=== PATIENT | male | born 1965 | race Caucasian/White ===

== ENCOUNTER → 2019-05-04 | Day surgery (SDC) | payer BC ==
[2019-05-03 12:43] LABS: BASOPHILS % 0.4 % (0.0-1.0); EOSINOPHILS % 0.4 % (0.0-6.0); HEMATOCRIT 45.6 % (38.2-49.6); LYMPHOCYTES # (AUTO) 2.2 (1.0-3.2); LYMPHOCYTES % 25.6 % (18.0-39.1); MEAN CORPUSCULAR HEMOGLOBIN 33.6 pg (28-32); MEAN CORPUSCULAR HGB CONC 35.1 g/dL (31-35); MEAN CORPUSCULAR VOLUME 95.8 fL (81-99); MONOCYTES # (AUTO) 0.6 (0.2-0.8); MONOCYTES % 6.5 % (4.4-11.3); NEUTROPHILS # (AUTO) 5.7 (2.1-6.9); NEUTROPHILS % 66.7 % (38.7-80.0); PLATELET COUNT 228 x10e3/uL (140-360); RED BLOOD COUNT 4.76 x10e6/uL (4.3-5.7); RED CELL DISTRIBUTION WIDTH 11.7 % (11.7-14.4)
[2019-05-03 13:07] LABS: ALANINE AMINOTRANSFERASE 27 IU/L (0-55); ALBUMIN 3.9 g/dL (3.5-5.0); ALBUMIN/GLOBULIN RATIO 1.2 (0.8-2.0); ALKALINE PHOSPHATASE 95 IU/L (40-150); ANION GAP 11.9 mmol/L (8-16); BLOOD UREA NITROGEN 20 mg/dL (7-26); BUN/CREATININE RATIO 20 (6-25); CALCIUM 10.2 mg/dL (8.4-10.2); CARBON DIOXIDE 32 mmol/L (22-29); CHLORIDE 101 mmol/L (98-107); CREATININE, SERUM 1.02 mg/dL (0.72-1.25); EST GLOMERULAR FILTRATION RATE > 60 ML/MIN (60-); GLUCOSE 78 mg/dL (74-118); POTASSIUM 3.9 mmol/L (3.5-5.1); SODIUM 141 mmol/L (136-145)
[~2019-05-04] VITALS: Ht 185.4 cm; Wt 113.4 kg
[2019-05-04] VITALS (8 sets, daily range): BP systolic 120–139; BP diastolic 76–99
[~2019-05-04] MED LIST: AMLODIPINE BESYL5 MG PO; CYCLOBENZAPRINE10 MG PO; FENTANYL CITRATE/PF 100MCG/2 ML INJ ONE; HEPARIN SOD/SOD CHLORIDE 1,000 ML ONE; IOPAMIDOL 370 MG/ML 200 ML INFUS..BTL INJ ONE; LIDOCAINE HCL 2% LOCAL 20 ML VIAL ONE; LISINOPRIL/HCTZ PO; MIDAZOLAM HCL 2 MG/2 ML VIAL ONE; SODIUM CHLORIDE 0.9% 1000ML 1,000 ML ONE; ULTRAM50 MG PO; VERAPAMIL HCL 2.5 MG/ML 2 ML VIAL ONE
--- OUTSIDE RECORDS SUMMARY | 2019-05-04 10:04 | XMS REPORT ---
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 Allergies, Adverse Reactions, Alerts Allergy Name Allergy Type Status Severity Reaction(s) Onset Date Inactive Date Treating Clinician Comments erna BARBOUR Active CO 2009-03-09 00:00:00 Medications This patient has no known medications. Results Test Description Test Time Test Comments Text Results Atomic Results Result Comments COMPREHENSIVE METABOLIC PANEL 2018-12-12 02:14:00 SODIUM (test code=NA) 138 mmol/l 134.0-147.0 POTASSIUM (test code=K) 3.9 mmol/L 3.6-5.2 CHLORIDE (test code=CL) 102 mmol/l 98.0-107.0 CARBON DIOXIDE (test code=CO2) 28.5 mmol/l 21.0-33.0 ANION GAP (test code=GAP) 11.4 0-20 GLUCOSE (test code=GLU) 99 mg/dl 70.0-110.0 BLOOD UREA NITROGEN (test code=BUN) 12 mg/dl 7.0-18.0 CREATININE (test code=CREAT) 0.84 mg/dL 0.60-1.30 GFR NON BLACK (test code=GFRNONBLACK) 102 mL/min 90-95 GFR BLACK (test code=GFRBLACK) 123 mL/min 109-115 TOTAL PROTEIN (test code=PROT) 7.2 gm/dL 6.4-8.2 ALBUMIN (test code=ALB) 3.8 gm/dl 3.2-4.7 CALCIUM (test code=CA) 8.7 mg/dl 8.0-10.5 BILIRUBIN TOTAL (test code=BILT) 0.5 mg/dl 0.0-1.0 SGOT/AST (test code=AST) 33 Units/L 15.0-37.0 SGPT/ALT (test code=ALT) 41 Units/L 12.0-78.0 ALKALINE PHOSPHATASE TOTAL (test code=ALKP) 95 Units/L 50.0-136.0 [id number] 02:14:00* Test Item Value Reference Range Comments LIPASE (test code=LIP) 142 Units/L 65.0-230.0 [id number] 02:14:00* Test Item Value Reference Range Comments MAGNESIUM (test code=MAG) 2.2 mg/dl 1.8-2.4 B-TYPE NATRIURETIC [id number] 02:14:00* Test Item Value Reference Range Comments B-TYPE NATRIURETIC PEPTIDE (test code=BNP) 32 PG/ML 5-100 [id number] 02:14:00* Test Item Value Reference Range Comments TROPONIN-I (test code=TROPI) <0.02 NG/ML 0.00-0.06 REFERENCE RANGE TROPONIN I HEALTHY INDIVIDUALS: <0.06 ng/mL R/O ISCHEMIA: 0.07 - 0.60 ng/mL CUT-OFF RANGE FOR AMI: 0.60 - 1.5 ng/mL COMPREHENSIVE METABOLIC [id number] 02:09:00* Test Item Value Reference Range Comments SODIUM (test code=NA) 138 mmol/l 134.0-147.0 POTASSIUM (test code=K) 3.9 mmol/L 3.6-5.2 CHLORIDE (test code=CL) 102 mmol/l 98.0-107.0 CARBON DIOXIDE (test code=CO2) 28.5 mmol/l 21.0-33.0 ANION GAP (test code=GAP) 11.4 0-20 GLUCOSE (test code=GLU) 99 mg/dl 70.0-110.0 BLOOD UREA NITROGEN (test code=BUN) 12 mg/dl 7.0-18.0 CREATININE (test code=CREAT) 0.84 mg/dL 0.60-1.30 GFR NON BLACK (test code=GFRNONBLACK) 102 mL/min 90-95 GFR BLACK (test code=GFRBLACK) 123 mL/min 109-115 TOTAL PROTEIN (test code=PROT) 7.2 gm/dL 6.4-8.2 ALBUMIN (test code=ALB) 3.8 gm/dl 3.2-4.7 CALCIUM (test code=CA) 8.7 mg/dl 8.0-10.5 BILIRUBIN TOTAL (test code=BILT) 0.5 mg/dl 0.0-1.0 SGOT/AST (test code=AST) 33 Units/L 15.0-37.0 SGPT/ALT (test code=ALT) 41 Units/L 12.0-78.0 ALKALINE PHOSPHATASE TOTAL (test code=ALKP) 95 Units/L 50.0-136.0 [id number] 02:09:00* Test Item Value Reference Range Comments LIPASE (test code=LIP) 142 Units/L 65.0-230.0 [id number] 02:09:00* Test Item Value Reference Range Comments MAGNESIUM (test code=MAG) 2.2 mg/dl 1.8-2.4 B-TYPE NATRIURETIC [id number] 02:09:00* Test Item Value Reference Range Comments B-TYPE NATRIURETIC PEPTIDE (test code=BNP) PG/ML 5-100 [id number] 02:09:00* Test Item Value Reference Range Comments TROPONIN-I (test code=TROPI) <0.02 NG/ML 0.00-0.06 REFERENCE RANGE TROPONIN I HEALTHY INDIVIDUALS: <0.06 ng/mL R/O ISCHEMIA: 0.07 - 0.60 ng/mL CUT-OFF RANGE FOR AMI: 0.60 - 1.5 ng/mL PROTHROMBIN [id number] 01:59:00* Test Item Value Reference Range Comments PROTHROMBIN TIME PATIENT (test code=PTP) 10.9 SECONDS 9.9-12.8 INTERNATIONAL NORMAL RATIO (test code=INR) 0.9 0.89-1.14 THE INR IS TO BE USED ONLY FOR MONITORING ORAL ANTICOAGULANTTHERAPY. THE FOLLOWING ARE SUGGESTED RANGES FROM THEAMERICAN COLLEGE OF CHEST PHYSICIANS:INDICATION INR VALUEPROPHYLAXIS OF VENOUS THROMBOSIS (ORTHOPEDIC SURGERY) 2.0 - 3.0PROPHYLAXIS OF VENOUS THROMBOSIS (OTHER THAN HIGH-RISK SURGERY) 2.0 - 3.0TREATMENT OF DEEP VEIN THROMBOSIS OR PULMONARY EMBOLISM 2.0 - 3.0PREVENTION OF SYSTEMIC EMBOLISM TISSUE HEART VALVES 2.0 - 3.0 ACUTE MYOCARDIAL INFARCTION (TO PREVENT SYSTEMIC EMBOLISM) 2.0 - 3.0 ACUTE MYOCARDIAL INFARCTION (TO PREVENT RECURRENT INFARCT) 2.5 - 3.0 VALVULAR HEART DISEASE 2.0 - 3.0 ATRIAL FIBRILATION 2.0 - 3.0BILEAFLET MECHANICAL VALVE IN AORTIC POSITION 2.0 - 3.0MECHANICAL PROSTHETIC VALVES (HIGH RISK) 2.5 - 3.5PRESENCE OF LUPUS ANTICOAGULANT OR ANTIPHOSPHOLIPID ANTIBODIES 2.5 - 3.5 D-DIMER/[id number] 01:59:00* Test Item Value Reference Range Comments D-DIMER/FSP (test code=DDIMER) <200 ng/mL 200.0-230.0 Per watershed tender recommendation, the CUT OFFfor the Diagnosis of PE or DVT with a 100% SENSITIVITY &100% PREDICTIVE VALUE is suggested to be 230 ng/mL D- DIMERUNIT(DDU). D-DIMER RESULTS MAY BE AFFECTED BY:1. HEMOGLOBIN > 100 mg/dL2. BILIRUBIN > 10 mg/dL3. TRIGLYCERIDES > 1500 mg/dL4. The presence of RHEUMATIOID FACTOR may produce an overestimation of the test result. - XR CHEST 1 [id number] 01:59:00 FAX: Dakota Salinas MD [phone] [place]: St: REG Name: GELA DUMONT [facility] : [birth year] Age/S: 53/M [address] [facility] Unit #: [id number] Loc: [address] Phys: [place] [id number] Acct: [id number] Dis Date: Status: REG ER PHONE #: [phone] Exam Date: 12/12/2018143 FAX #: [phone] Reason: cp / LE edema EXAMS: CPT CODE: [id number] XR CHEST 1 V 99840 Site ID: [id number] HISTORY: Chest pain, lower extremity edema COMPARISON: Chest x-ray October 06, 2016 FINDINGS: The lungs are clear and normally expanded. Heart size is normal, a prominent right lower lobe pul monary vessel which could reflect an aberrant pulmonary vein is unchanged. Osseous structures are unremarkable. IMPRESSION: No acute finding at 0627 Reported and signed by: Alberto Oliveira M.D. CC: Dakota Salinas MD Technologist: MANDI Woodwardinchristelel Date/Time/By: 12/12/2018 (0159) : By: [email or web address] PAGE 1 Signed Report FAX: Dakota Salinas MD [phone] [place]: St: REG Name: VENU LEONARDO [facility] : 1965 Age/S: 6 2/M [address] [facility] Unit #: [id number] Loc: [address] Phys: [place] [id number] Acct: [id number] Dis Date: S tatus: REG ER PHONE #: [phone] Exam Mihai e: 12/12/20184 FAX #: [phone] Reason: cp / LE edema EXAMS: CPT CODE: [id number] XR CHEST 1 V 84628 <Continued> Orig Print D/T: S: 12/12/2018 (0202) PAGE 2 Signed Report COMPREHENSIVE METABOLIC [id number] 01:58:00* Test Item Value Reference Range Comments SODIUM (test code=NA) 138 mmol/l 134.0-147.0 POTASSIUM (test code=K) 3.9 mmol/L 3.6-5.2 CHLORIDE (test code=CL) 102 mmol/l 98.0-107.0 CARBON DIOXIDE (test code=CO2) 28.5 mmol/l 21.0-33.0 ANION GAP (test code=GAP) 11.4 0-20 GLUCOSE (test code=GLU) mg/dl 70.0-110.0 BLOOD UREA NITROGEN (test code=BUN) mg/dl 7.0-18.0 CREATININE (test code=CREAT) mg/dL 0.60-1.30 GFR NON BLACK (test code=GFRNONBLACK) mL/min 90-95 GFR BLACK (test code=GFRBLACK) mL/min 109-115 TOTAL PROTEIN (test code=PROT) gm/dL 6.4-8.2 ALBUMIN (test code=ALB) gm/dl 3.2-4.7 CALCIUM (test code=CA) mg/dl 8.0-10.5 BILIRUBIN TOTAL (test code=BILT) mg/dl 0.0-1.0 SGOT/AST (test code=AST) Units/L 15.0-37.0 SGPT/ALT (test code=ALT) Units/L 12.0-78.0 ALKALINE PHOSPHATASE TOTAL (test code=ALKP) Units/L 50.0-136.0 [id number] 01:58:00* Test Item Value Reference Range Comments LIPASE (test code=LIP) Units/L 65.0-230.0 [id number] 01:58:00* Test Item Value Reference Range Comments MAGNESIUM (test code=MAG) mg/dl 1.8-2.4 B-TYPE NATRIURETIC [id number] 01:58:00* Test Item Value Reference Range Comments B-TYPE NATRIURETIC PEPTIDE (test code=BNP) PG/ML 5-100 [id number] 01:58:00* Test Item Value Reference Range Comments TROPONIN-I (test code=TROPI) NG/ML 0.00-0.06 TROPONIN I [id number] 01:55:00* Test Item Value Reference Range Comments TROPONIN I RAPID (test code=TROPIRAP) 0.02 0.00-0.08 Negative: <=0.08 Positive: >=0.09An elevated troponin value alone is not sufficient todiagnose a myocardial infarction. Rather, the patient'sclinical presentation (history, physical exam) and ECGshould be used in conjunction with troponin in thediagnostic evaluation of suspected myocardial infarction.A serial sampling protocol is recommended to facilitatethe identification of temporal changes in troponin levelscharacteristic of CO. CBC W/AUTO [id number] 01:53:00* Test Item Value Reference Range Comments WHITE BLOOD CELL (test code=WBC) 5.9 K/mm3 4.5-11.0 RED BLOOD CELL (test code=RBC) 4.41 M/mm3 4.40-5.90 HEMOGLOBIN (test code=HGB) 14.7 gm/dL 13.0-17.0 HEMATOCRIT (test code=HCT) 43.7 % 36.0-48.0 MEAN CELL VOLUME (test code=MCV) 99.1 UM3 80.0-94.0 MEAN CELL HGB (test code=MCH) 33.3 UUG 25.5-32.5 MEAN CELL HGB CONCETRATION (test code=MCHC) 33.6 gm/dL 29.0-35.5 RED CELL DISTRIBUTION WIDTH (test code=RDW) 12.5 % 11.5-15.0 RED CELL DISTRIBUTION WIDTH SD (test code=RDW-SD) 46.1 fL 34.8-50.2 PLATELET COUNT (test code=PLT) 188 K/mm3 150-400 MEAN PLATELET VOLUME (test code=MPV) 8.4 fl 7.4-10.4 NEUTROPHIL % (test code=NT%) 59.9 % 49.0-76.0 IMMATURE GRANULOCYTE % (test code=IG%) 0.2 % 0.0-0.4 LYMPHOCYTE % (test code=LY%) 29.0 % 23.0-38.0 MONOCYTE % (test code=MO%) 9.0 % 1.0-10.0 EOSINOPHIL % (test code=EO%) 1.4 % 1.0-5.0 BASOPHIL % (test code=BA%) 0.5 % 0.0-1.0 NEUTROPHIL # (test code=NT#) 3.5 K/mm3 2.4-6.3 IMMATURE GRANULOCYTE # (test code=IG#) 0.01 x10 3/uL 0.00-0.07 LYMPHOCYTE # (test code=LY#) 1.7 K/mm3 1.2-4.0 MONOCYTE # (test code=MO#) 0.5 K/mm3 0.0-0.6 EOSINOPHIL # (test code=EO#) 0.1 K/MM3 0.0-0.7 BASOPHIL # (test code=BA#) 0.0 K/mm3 0.0-0.2
--- NOTE | 2019-05-04 12:39 | NUR ---
[facility] Juan Carlos BAIN. Alert oriented and appropriate, PERRLA, respirations even and unlabored to room air. Pulses x4 extremities equal and strong. Pedal pulses PT/DP x4 Cap fill brisk < 3 sec. Rt TR band Reduce air at 1330 and dc home at 1430pm Skin warm and dry integrity appears D/I. IV 20g to left hand, presents healthy w/o s/s of infiltration or complaint. Abdomen soft and supple. pt offered toileting, denies need to urinate or defecate. No personal affects with patient. Family Reji Friend Pt and family verbalizes understanding of POC. Currently w/o complaint of pain or need. ds/rn
--- NOTE | 2019-05-04 13:30 | NUR ---
1330 RADIAL Compression removal: Initial Cuff volume 11 cc 1330p -2cc Removed No hematoma/bleeding noted with normal neurovascular function. 1345p -3cc Removed No hematoma/ bleeding noted with normal neurovascular function. 1400 -3cc Removed No hematoma/bleeding noted with normal neurovascular function. Air removal completed. Stasis achieved sterile 2x2,Tegaderm, Coban dressing No hematoma, bleeding noted with normal neurovascular function. Wrist splint in place. Pt instructed on POC. Ds/Rn
--- NOTE | 2019-05-04 14:00 | NUR ---
[address] Oliveira office for clarification of medication list. Was informed form sedation nurse Renard BAIN that pt will have two medications phoned to pharmacy by Md and to sweet pickle maker for b/p control tonight. While preparing pt to dc,pt asked for clarification if current b/p med should be stopped. I told pt would reach out to Md for clarification but please call office for further update clarification and reinforce importance to f/o care 2wks Md office.ds/rn
--- NOTE | 2019-05-04 14:30 | NUR ---
1430Pt meets DC criteria. rt radial assessed for s/s of complication and presence of hematoma. Skin warm, dry, no discolor, and pulses present. IV removed from left hand Distal tip appears intact. VS WNL. Pt denies pain, sob, or need at this time. Friend [phone]. Review of discharge paperwork and follow up instructions. verbalized understanding. Pt to wheelchair and transported to front of hospital. Transferred to private vehicle under own strength w/o incident with DC paperwork in hand. -ds/rn
--- NOTE | 2019-05-04 16:00 | NUR ---
1600p called Dr Oliveira office and asked for return call to insure pt is unsure about stopping old b/p meds and starting new meds. pinky/rn
--- NOTE | 2019-06-11 15:57 | Operative Report ---
DATE OF PROCEDURE: 05/04/2019 SURGEON: Sher Oliveira MD INDICATION FOR PROCEDURE: Systolic CHF. PREPROCEDURE ASSESSMENT: Risks, benefits, and alternatives of treatment were explained to the patient prior to the procedure. The patient was deemed to be an appropriate candidate for moderate sedation. Informed consent is documented in the medical record. PROCEDURES PERFORMED: 1. Coronary angiography. 2. Left heart catheterization, right radial approach. PROCEDURE DETAILS: The patient was brought to the cardiac catheterization laboratory in a fasting state. Right wrist was prepped and draped in a sterile fashion. A 6-Lao Slender sheath was inserted in right radial artery using modified Seldinger technique. Coronary angiography was performed using Monica radial catheter. Left heart catheterization was performed using a pigtail catheter. Multiple orthogonal views were taken of each coronary artery. There were no immediate complications. All catheters were removed over a wire. Access site was closed using a TR band device. FINDINGS: Right dominant system, 40% LV ejection fraction. No gradient across the aortic valve. LVEDP 22 mmHg. No significant CAD. GRAFTS AND IMPLANTS: None. SPECIMENS REMOVED: None. ESTIMATED BLOOD LOSS: 10 mL. COMPLICATIONS: None. FINAL RECOMMENDATIONS: 1. Continue optimal medical therapy and risk factor control. 2. Follow up in clinic 2 weeks post discharge. Sher Oliveira MD KVP/MODL /[id number]
== END | disposition home or self-care (01) ==
LOC: CATH LAB 09:53
PROVIDERS: ATTEND Internal Medicine
DX: I25.118 Atherosclerotic heart disease of native coronary artery with other forms of angina pectoris (principal); I11.0 Hypertensive heart disease with heart failure; I50.20 Unspecified systolic (congestive) heart failure; E78.5 Hyperlipidemia, unspecified; I44.7 Left bundle-branch block, unspecified; I87.2 Venous insufficiency (chronic) (peripheral); I73.9 Peripheral vascular disease, unspecified; Z88.6 Allergy status to analgesic agent; Z01.812 Encounter for preprocedural laboratory examination; Z87.891 Personal history of nicotine dependence; Z68.42 Body mass index [BMI] 45.0-49.9, adult; Z82.3 Family history of stroke
CPT/HCPCS: 36415; 80053; 85025; 93458; C1887; J2001; J2250; J3010; J7030; Q9967; 99152